=== PATIENT | female | born 2000 | race Caucasian/White ===

== ENCOUNTER → 2023-06-13 | Outpatient (CLI) | payer BC ==
[2023-06-13 17:15] LABS: T4, Free (Free Thyroxine) 1.37 ng/dL (0.80-1.80); Thyroid Peroxidase Antibodies 10.4 U/mL (0.0-33.0)
[2023-06-13 20:17] LABS: Gliadin AB IgA, Deaminated Negative (Negative); Gliadin AB IgA, Unit <0.5 U/mL
== END | disposition home or self-care (01) ==
LOC: LABWHC1 09:47
PROVIDERS: ATTEND Family Medicine
DX: R10.84 Generalized abdominal pain (principal); R10.9 Unspecified abdominal pain
CPT/HCPCS: 36415; 83516; 84439; 84443; 84480; 86038; 86376

== ENCOUNTER 2023-07-12 09:10 | Day surgery (SDC) | payer BC ==
[2023-07-11 11:34] VITALS: BMI 24.3
[2023-07-12] MEDS: LACTATED RINGERS 1,000 ML IV SCH (09:46)
[2023-07-12 10:20] VITALS: TEMP 97
[2023-07-12] MEDS ORDERED: PROPOFOL 10 MG/ML 20 ML VIAL IV ONE (10:35)
--- NOTE | 2023-07-12 10:53 | P.PCN ---
Date of Procedure: 07/12/23 Procedure(s) Performed: BRIEF HISTORY: Patient is a 23-year-old pleasant female scheduled for an elective colonoscopy as a part of evaluation of change in bowel habits and abdominal distention. Her father diagnosed with colon cancer at age 49. PROCEDURE PERFORMED: Colonoscopy with snare polypectomy. PREOPERATIVE DIAGNOSIS: Abdominal pain/change in bowel habits and family history of colon cancer. IV sedation per Anesthesia. PROCEDURE: After informed consent was obtained, the patient, was brought into the endoscopy unit. IV sedation was administered by Anesthesia under continuous monitoring. Digital rectal examination was normal. Initially the Olympus CF-160 flexible video colonoscope was then inserted in the rectum, gradually advanced into the cecum without any difficulty. Careful examination was performed as the scope was gradually being withdrawn. Ileocecal valve and the appendiceal orifice were visualized and appeared normal. Prep was excellent. Mucosa of the cecum, ascending colon, appeared normal. In the hepatic flexure there ywas a 5 mm polyp that was removed by cold snare polypectomy. Rest of the transverse colon, descending colon, sigmoid colon, and rectum appeared normal. Retroflexion was performed in the rectum and no lesions were seen. The patient tolerated the proc edure well. IMPRESSION: 5 mm hepatic flexure polyp s/p cold snare polypectomy Rest of the colon appeared normal RECOMMENDATIONS: Findings of this examination were discussed with the patient as well as her family. She was advised to follow-up with the biopsy results and have repeat colonoscopy in 5 years because of a family history of colon cancer.
[2023-07-12 11:51] VITALS: BP 112/76; PULSE 64; RESP 18
== END 2023-07-12 11:39 | disposition home or self-care (01) ==
LOC: ORWHC2ENDO 09:10
PROVIDERS: ATTEND Internal Medicine Gastroenterology
DX: D12.3 Benign neoplasm of transverse colon (principal); F12.90 Cannabis use, unspecified, uncomplicated; Z91.040 Latex allergy status; Z80.0 Family history of malignant neoplasm of digestive organs
CPT/HCPCS: 81025; 88305; 45385; J2704